=== PATIENT | male | born 1970 | race Caucasian/White ===

== ENCOUNTER 2024-04-02 18:42 | Emergency (ER) | payer SELFPAY ==
[2024-04-02] MEDS: Lisinopril 20 MG Tab PO SCH (19:10)
[2024-04-02] MEDS: Lidocaine 2% 5 ML SDV INJECT ONE ×2 (19:11→20:45)
[2024-04-02] MEDS: Bacitracin/Neomycin/Polymyxin B Oint 0.9 GM U/D Packet TOP ONE (19:11)
[2024-04-02] MEDS: Lidocaine/Epineph/Tetracaine 3 ML Syringe TOP ONE (19:11)
[2024-04-02] MEDS ORDERED: Midazolam 1 MG/ML 2 ML SDV IVPUSH ONE (19:43)
[2024-04-02] MEDS ORDERED: Ketamine 200 MG/20 ML MDV IVPUSH ONE (19:44)
[2024-04-02] MEDS: Sodium Chloride 0.9% 1,000 ML IV SCH (20:00)
[2024-04-02] MEDS ORDERED: Midazolam 1 MG/ML 2 ML SDV ONE (21:20)
[2024-04-02] MEDS ORDERED: Propofol 200 MG/20 ML SDV ONE (21:20)
[2024-04-02 22:45] LABS: BASOPHILS ABSOLUTE AUTO 0.04 10^3/uL (0.00-0.10); BASOPHILS PERCENT AUTO 0.3 % (0.0-1.0); EOSINOPHILS ABSOLUTE AUTO 0.07 10^3/uL (0.10-0.30); EOSINOPHILS PERCENT AUTO 0.5 % (1.0-3.0); HEMATOCRIT 43.7 % (40.0-52.0); HEMOGLOBIN 14.7 g/dL (13.0-17.0); IMMATURE GRAN ABSOLUTE AUTO 0.05 10^3/uL (0.00-0.50); IMMATURE GRAN PERCENT AUTO 0.3 % (0.0-5.0); LYMPHOCYTES ABSOLUTE AUTO 1.23 10^3/uL (1.00-4.00); LYMPHOCYTES PERCENT AUTO 8.1 % (20.0-40.0); MEAN CORPUSCULAR HEMOGLOBIN 28.1 pg (27.0-31.0); MEAN CORPUSCULAR HGB CONC 33.6 g/dL (32.0-36.0); MEAN CORPUSCULAR VOLUME 83.4 fL (82.0-92.0); MEAN PLATELET VOLUME 9.2 fL (7.4-10.4); MONOCYTES ABSOLUTE AUTO 1.15 10^3/uL (0.10-0.80); MONOCYTES PERCENT AUTO 7.6 % (2.0-8.0); NEUTROPHILS ABSOLUTE AUTO 12.65 10^3/uL (2.50-7.00); NEUTROPHILS PERCENT AUTO 83.2 % (50.0-70.0); PLATELET COUNT,PLT 217 10^3/uL (150-400); RED BLOOD CELL COUNT 5.24 10^6/uL (4.50-6.00); RED CELL DISTRIBUTION WIDTH 12.8 % (11.5-14.5); WHITE BLOOD CELL COUNT,WBC 15.19 10^3/uL (5.00-10.00)
[2024-04-02 23:01] LABS: ALBUMIN 3.54 g/dL (3.40-5.00); BILIRUBIN TOTAL 0.7 mg/dL (0.2-1.0); CALCIUM 8.2 mg/dL (8.7-10.3); CARBON DIOXIDE,CO2 24.6 mmol/L (21.0-32.0); CREATININE 1.08 mg/dL (0.51-1.17); EST CRCL DRUG DOSING (CG) 94.08 mL/min; POTASSIUM,K 3.6 mmol/L (3.5-5.1); PROTEIN TOTAL,TP 6.4 g/dL (6.4-8.2)
[2024-04-03] MEDS ORDERED: Naloxone 0.4 MG/ML SDV IVPUSH PRN (00:41)
[2024-04-03] MEDS: HYDROmorphone 1 MG/ML Syringe IVPUSH ONE (00:55)
== END 2024-04-03 04:50 | disposition home or self-care (01) ==
LOC: KA.ED 18:42
DX: S52.502A Unspecified fracture of the lower end of left radius, initial encounter for closed fracture (principal); S52.612A Displaced fracture of left ulna styloid process, initial encounter for closed fracture; S42.102A Fracture of unspecified part of scapula, left shoulder, initial encounter for closed fracture; S01.01XA Laceration without foreign body of scalp, initial encounter; S61.411A Laceration without foreign body of right hand, initial encounter; I10 Essential (primary) hypertension; Z79.899 Other long term (current) drug therapy; W19.XXXA Unspecified fall, initial encounter; W22.8XXA Striking against or struck by other objects, initial encounter; Y99.0 Civilian activity done for income or pay; Y92.89 Other specified places as the place of occurrence of the external cause
CPT/HCPCS: 12005; 25605; 36415; 73030; 73100; 80053; 85025; 96361; 96374; 99283; A9270; J1170; J7030; J3490